=== PATIENT | male | born 1950 | race Caucasian/White ===

== ENCOUNTER 2019-01-13 08:26 | Day surgery (SDC) | payer OTHER ==
[~2019-01-13 08:26] MED LIST: Acetaminophen TAB* 325 MG PO PRN; Buffered Lidocaine 1% SYRIN* 1 ML/SYRINGE INTRADERM ONE
[2019-01-13] MEDS ORDERED: fentaNYL* 50 MCG/ML 2 ML VIAL (100 MCG VIAL) ONE (09:28)
[2019-01-13] MEDS ORDERED: Midazolam* 1 MG/ML 2 ML VIAL (2 MG) ONE (09:28)
[2019-01-13 10:38] VITALS: BP 125/75
--- NOTE | 2019-01-13 11:22 | OP ---
DATE OF OPERATION: 01/13/19 [facility] DATE OF : 48 SURGEON: Alexey Aguilera MD [facility] PROMOTER: None. ANESTHESIA: Topical with intravenous sedation. PRE-OP DIAGNOSES: 1. Cataract, left eye. 2. High myopia. POST-OP DIAGNOSES: 1. Cataract, left eye. 2. High myopia. OPERATIVE PROCEDURE: Phacoemulsification and cataract extraction with posterior chamber intraocular lens implant, left eye and ORA use. COMPLICATIONS: None. BLOOD LOSS: None. DESCRIPTION OF PROCEDURE: The patient was brought to the operating room and received a small amount of intravenous sedation. A drop of tetracaine was placed in his left eye. The patient was prepped and draped in the usual sterile fashion for ophthalmic surgery and attention was directed to the left eye where a speculum was placed. A paracentesis was created at the 5 o'clock position and 0.1 cc of 1% preservative-free lidocaine was injected into the anterior chamber followed by DisCoVisc. The eye was digitally stabilized while a 2.75 mm keratome was used to create a triplanar clear corneal incision at the 3 o'clock position. A continuous curvilinear capsulorrhexis was created with a cystotome and Utrata forceps. BSS on a cannula was used to hydrodissect the lens from the capsule. Phacoemulsification was performed in a divide-and- conquer technique to create 4 fragments which were removed. Residual cortical material was removed with irrigation and aspiration. The capsular bag was polished. ProVisc was used to inflate the anterior chamber and the capsule. The eye was lubricated with balanced saline solution. The pressure in the eye was found to be appropriate and the ORA was employed. The ORA indicated that a 9.0 diopter AU00T0 lens should be in place to achieved the desired amount of postoperative myopia. Thus that lens was opened and inserted into the capsular bag. Viscoelastic was removed with irrigation and aspiration. BSS on a cannula was used to hydrate the corneal stroma and seal the wound. At the end of the case, the pupil was round. The lens was centered and stable. The eye pressure appeared normal and the wound was watertight. The speculum was removed and topical Maxitrol ointment was placed on the surface of the eye. The eye was closed, patched, and shielded, and the patient was sent to recovery room in stable condition with postoperative instructions and followup appointment given. [id number]/[facility] #: [id number] PAUL[place]
[2019-01-13] MEDS ORDERED: Cyclopentolate 1% OPTH.SOL* 2 ML BTL ONE (11:26)
[2019-01-13] MEDS ORDERED: Tropicamide 1% OPTH.SOL* BTL ONE (11:26)
[2019-01-13] MEDS ORDERED: Tetracaine 0.5% OPTH.SOL 4 ML* 1 DROP BTL ONE (11:26)
[2019-01-13] MEDS ORDERED: Neomycin/Polymy/Dex OPHTH.OIN* 3.5 GM ONE (11:26)
[2019-01-13] MEDS ORDERED: Lidocaine 1%* 5 ML VIAL ONE (11:26)
[2019-01-13] MEDS ORDERED: Ketorolac 0.5% OPHTH (NF) 0.5 % 5 ML BTL ONE (11:26)
== END 2019-01-13 10:40 | disposition home or self-care (01) ==
LOC: OREAST 08:26
PROVIDERS: ATTEND Ophthalmology
DX: H25.12 Age-related nuclear cataract, left eye (principal); H44.22 Degenerative myopia, left eye; E78.00 Pure hypercholesterolemia, unspecified
CPT/HCPCS: A9270-GY; J2250; J3010; V2632

== ENCOUNTER 2019-01-20 06:36 | Day surgery (SDC) | payer OTHER ==
[2019-01-20] MEDS ORDERED: fentaNYL* 50 MCG/ML 2 ML VIAL (100 MCG VIAL) ONE (07:34)
[2019-01-20] MEDS ORDERED: Midazolam* 1 MG/ML 2 ML VIAL (2 MG) ONE (07:34)
[2019-01-20 08:58] VITALS: BP 139/72
--- NOTE | 2019-01-20 09:37 | OP ---
OPERATIVE REPORT: DATE OF OPERATION: 01/20/19 DATE OF : 48 SURGEON: Dr. Alexey Aguilera. WATCH ASSEMBLER: None. ANESTHESIA: Topical with intravenous sedation. PRE-OP DIAGNOSIS: Cataract, right eye. POST-OP DIAGNOSIS: Cataract, right eye. OPERATIVE PROCEDURE: Phacoemulsification and cataract extraction with posterior chamber intraocular lens implant, right eye. COMPLICATIONS: None. BLOOD LOSS: None. OPERATIVE FINDINGS: The patient was brought to the operating room and received a small amount of int ravenous sedation. A drop of Tetracaine was placed in his right eye. He was prepped and draped in t he usual sterile fashion for ophthalmic surgery and attention was directed to the right eye where a s peculum was placed. A paracentesis was created at the 11 o'clock position and 0.1 cc of 1 percent pr eservative-free Lidocaine was injected into the anterior chamber followed by DisCoVisc. The eye was digitally stabilized while a 2.75 mm keratome was used to create a triplanar clear corneal incision a t the 9 o'clock position. A continuous curvilinear capsulorrhexis was created with a cystotome and U trata forceps. BSS on a cannula was used to hydrodissect the lens from the capsule. Phacoemulsifica tion was performed in a [id number] technique to create four fragments which were removed. Re sidual cortical material was removed with irrigation and aspiration. DisCoVisc was used to inflate th e capsular bag and an AUOOTO 11.0 diopter lens was folded and inserted into the capsular bag. DisCoV isc was removed using irrigation and aspiration. BSS on a cannula was used to hydrate the corneal st jeff and seal the wound. At the end of the case the pupil was round and the lens was centered. The e ye was of normal pressure and the wound was water tight. The speculum was removed and topical Maxitr ol ointment was placed on the surface of the eye. The eye was closed, patched and shielded and the p atient was sent to the recovery room in stable condition with post operative instructions and follow- up appointment given. [id number] #: [id number]
[2019-01-20] MEDS ORDERED: Neomycin/Polymy/Dex OPHTH.OIN* 3.5 GM ONE (13:24)
[2019-01-20] MEDS ORDERED: Ketorolac 0.5% OPHTH (NF) 0.5 % 5 ML BTL ONE (13:24)
[2019-01-20] MEDS ORDERED: Tetracaine 0.5% OPTH.SOL 4 ML* 1 DROP BTL ONE (13:24)
[2019-01-20] MEDS ORDERED: Cyclopentolate 1% OPTH.SOL* 2 ML BTL ONE (13:24)
[2019-01-20] MEDS ORDERED: Tropicamide 1% OPTH.SOL* BTL ONE (13:24)
[2019-01-20] MEDS ORDERED: Phenylephrine 2.5% OPTH.SOL* 2 ML BTL ONE (13:24)
[2019-01-20] MEDS ORDERED: Lidocaine 1%* 5 ML VIAL ONE (13:24)
== END 2019-01-20 09:05 | disposition home or self-care (01) ==
LOC: OREAST 06:36
PROVIDERS: ATTEND Ophthalmology
DX: H25.11 Age-related nuclear cataract, right eye (principal); E78.5 Hyperlipidemia, unspecified
CPT/HCPCS: A9270-GY; J2250; J3010; V2632